=== PATIENT | female | born 1950 | race Caucasian/White ===

== ENCOUNTER 2021-09-09 18:26 | Emergency (ER) | payer MEDICARE, BC ==
[~2021-09-09] VITALS: Ht 172.7 cm; Wt 90.9 kg
[2021-09-09 18:58] VITALS: BP 160/82
[2021-09-09] MEDS ORDERED: tetanus & diphtheria toxoid (Td) vaccine 0.5ml IMVAC ONE (21:45)
[2021-09-09] MEDS ORDERED: TETanus/Pertussis (Acell)/Diphther VAC/PF (Tdap-Adult) 0.5ml syringe IMVAC ONE (21:50)
== END 2021-09-09 23:21 | disposition home or self-care (01) ==
LOC: ER 18:27
DX: S61.412A Laceration without foreign body of left hand, initial encounter (principal); W19.XXXA Unspecified fall, initial encounter; Y93.89 Activity, other specified; Y92.89 Other specified places as the place of occurrence of the external cause; Y99.8 Other external cause status
CPT/HCPCS: 12001; 90471; 90715; 99284; J7030; A6258; A6449